=== PATIENT | female | born 1970 | race Caucasian/White ===

== ENCOUNTER 2018-05-01 13:34 | Emergency (ER) | payer SELFPAY ==
[~2018-05-01] VITALS: Ht 160 cm; Wt 81.8 kg
[2018-05-01 13:45] VITALS: BP 159/94
[2018-05-01] MEDS ORDERED: SILVER SULFADIAZINE 1% 25 GM CREAM TP ONE (14:15)
[2018-05-01] MEDS ORDERED: PERTUSS(ACELL),DIPH,TET VAC/PF 0.5 ML VIAL IM ONE (14:15)
[2018-05-01] MEDS ORDERED: KETOROLAC TROMETHAMINE 60 MG/2 ML VIAL IM ONE (14:30)
== END 2018-05-01 14:58 | disposition home or self-care (01) ==
LOC: EMS 13:37
DX: T22.212A Burn of second degree of left forearm, initial encounter (principal); T22.112A Burn of first degree of left forearm, initial encounter; R03.0 Elevated blood-pressure reading, without diagnosis of hypertension; X12.XXXA Contact with other hot fluids, initial encounter; Y93.89 Activity, other specified; Y92.89 Other specified places as the place of occurrence of the external cause; Y99.8 Other external cause status
CPT/HCPCS: 16020; 90471; 90715; 96372; 99284; J1885; Z7610